=== PATIENT | female | born 1985 | race African-American/Black ===

== ENCOUNTER 2018-02-14 02:13 | Emergency (ER) | payer BC ==
[~2018-02-14] VITALS: Ht 167.6 cm; Wt 90.0 kg
[2018-02-14 05:06] LABS: CLARITY URINE CLOUDY (CLEAR); COLOR URINE YELLOW (YELLOW); KETONES URINE NEGATIVE (NEGATIVE); LEUKOCYTE ESTERASE URINE 3+ (NEGATIVE); NITRITE URINE NEGATIVE (NEGATIVE); OCCULT BLOOD URINE 3+ (NEGATIVE); PH URINE 5.5 (4.5-8.0); PROTEIN URINE 2+ (NEGATIVE); SPECIFIC GRAVITY URINE 1.015 (1.005-1.030); UROBILINOGEN URINE 0.2 E.U./dL (0.2-1.0)
[2018-02-14] MEDS ORDERED: ACETAMINOPHEN 325MG TABLET PO ONE (06:30)
[2018-02-14 07:13] LABS: BASOPHILS % 0.2 % (0.0-2.0); EOSINOPHILS % 1.9 % (0.0-5.0); HEMATOCRIT. 34.7 % (36.0-48.0); HEMOGLOBIN. 11.7 g/dL (12.0-16.0); LYMPHOCYTES % 15.8 % (20.0-50.0); MEAN CORPUSCULAR HEMOGLOBIN 29.4 pg (28.0-32.0); MEAN CORPUSCULAR VOLUME 87.6 fL (81.0-99.0); MEAN PLATELET VOLUME 9.1 fl (7.4-10.4); NEUTROPHILS % 75.1 % (40.0-76.0); PLATELET 181 x1000/uL (130-400); RED BLOOD CELL COUNT 3.96 mill/uL (4.2-5.4); RED CELL DISTRIBUTION WIDTH 14.7 % (11.6-14.6)
[2018-02-14 07:22] LABS: CHLORIDE 109 mEq/L (98-107)
[2018-02-14 08:11] VITALS: BP 126/83
== END 2018-02-14 08:37 | disposition home or self-care (01) ==
LOC: ER 04:55
DX: O86.21 Infection of kidney following delivery (principal); R10.12 Left upper quadrant pain; I10 Essential (primary) hypertension
CPT/HCPCS: 36415; 87077; 87186; 99284

== ENCOUNTER 2018-12-26 12:50 | Emergency (ER) | payer BC ==
[~2018-12-26] VITALS: Ht 170.2 cm; Wt 77.0 kg
[2018-12-26 14:16] VITALS: BP 119/65
== END 2018-12-26 16:47 | disposition home or self-care (01) ==
LOC: ER 12:54
DX: Z77.098 Contact with and (suspected) exposure to other hazardous, chiefly nonmedicinal, chemicals (principal)
CPT/HCPCS: 99281